=== PATIENT | female | born 1975 | race Caucasian/White ===

== ENCOUNTER 2017-02-01 17:59 | Emergency (ER) | payer OTHER, SELFPAY ==
[2017-02-01 19:08] LABS: Hematocrit 38.8 % (36.0-47.0); Red Blood Cell (RBC) Count 4.62 mill/uL (4.20-5.40); White Blood Cell (WBC) Count 6.7 thou/uL (4.8-10.8)
[2017-02-01 19:09] LABS: Bilirubin Negative (Negative); Blood, Urine Negative (Negative); Glucose, Urine (Dipstick) >=1000 mg/dL (Negative); Ketone, Urine 40 mg/dL (Negative); Nitrite Negative (Negative); Protein, Urine (Dipstick) Negative (Neg-Trace)
[2017-02-01 19:18] LABS: Hemoglobin A1c 12.8 % (4.0-6.0)
[2017-02-01 19:34] LABS: Anion Gap 6 mmol/L (-14-95); T. Carbon Dioxide 27.6 mmol/L (1.0-85.0); pH (Venous) 7.371 (7.35-7.45)
[2017-02-01 19:34] LABS: #Basophils 0.1 thou/uL (0.0-0.2); #Eosinphils 0.4 thou/uL (0.0-0.7); #Lymphocytes 2.7 thou/uL (1.20-3.40); #Monocytes 0.3 thou/uL (0.11-0.59); #Neutrophils 3.2 thou/uL (1.40-6.50); %Basophils 0.9 % (0.0-1.0); %Eosinophils 5.4 % (0.0-10.0); %Lymphocytes 41.1 % (21.0-51.0); %Monocytes 4.6 % (0.0-10.0); Band 2 % (5-11); Neutrophil 47 % (42-75); Reactive Lymphocytes 1 % (0-10)
[2017-02-01] MEDS ORDERED: Insulin Regular 300 UNITS/3 ML VIAL ONE (19:35)
[2017-02-01 19:36] LABS: Chloride 92 mmol/L (98-107)
[2017-02-01 19:37] LABS: Anion Gap 17 mmol/L (10-20); BUN (Urea Nitrogen) 11 mg/dL (7.0-18.7); Calc. Creatinine Clearance 0 mL/min (70-130); Calcium 9.2 mg/dL (7.8-10.44); Carbon Dioxide 21 mmol/L (22-29); Estimated GFR-MDRD 77
[2017-02-01 19:43] LABS: CK (CPK) 56 U/L (29-168)
== END 2017-02-01 22:00 | disposition home or self-care (01) ==
LOC: ERS 17:59
DX: E11.65 Type 2 diabetes mellitus with hyperglycemia (principal); F41.9 Anxiety disorder, unspecified; F32.9 Major depressive disorder, single episode, unspecified; Z85.41 Personal history of malignant neoplasm of cervix uteri; Z92.3 Personal history of irradiation
CPT/HCPCS: 36415; 36416; 80048; 81003; 81025; 82010; 82330; 82550; 82803; 83036; 83930; 85025; 96360; 96361; 96372; J1815

== ENCOUNTER 2017-03-08 11:22 | Emergency (ER) | payer SELFPAY ==
[~2017-03-08 11:22] MED LIST: Iopamidol 370 76% 100 ML VIAL ONE
[2017-03-08 12:06] LABS: Bacteria/HPF 2+ HPF (None Seen); Squamous Epithelial 0-3 HPF (0-3)
[2017-03-08] MEDS ORDERED: Morphine 4 MG/ML Carpuject ONE ×2 (12:17→13:25)
[2017-03-08 12:19] LABS: #Basophils 0.1 thou/uL (0.0-0.2); #Eosinphils 0.4 thou/uL (0.0-0.7); #Lymphocytes 1.7 thou/uL (1.20-3.40); #Monocytes 0.4 thou/uL (0.11-0.59); #Neutrophils 4.2 thou/uL (1.40-6.50); %Basophils 1.3 % (0.0-1.0); %Eosinophils 5.3 % (0.0-10.0); %Lymphocytes 25.3 % (21.0-51.0); %Monocytes 6.1 % (0.0-10.0); Hematocrit 40.3 % (36.0-47.0); Mean Platelet Volume 6.9 fL (7.4-10.4); Red Blood Cell (RBC) Count 4.58 mill/uL (4.20-5.40); White Blood Cell (WBC) Count 6.8 thou/uL (4.8-10.8)
[2017-03-08 12:41] LABS: ALT (SGPT) 16 U/L (8-55); AST (SGOT) 11 U/L (5-34); Alkaline Phosphatase 65 U/L (40-150); Anion Gap 18 mmol/L (10-20); BUN (Urea Nitrogen) 16 mg/dL (7.0-18.7); Bilirubin, Total 0.4 mg/dL (0.2-1.2); Calc. Creatinine Clearance 0 mL/min (70-130); Calcium 9.7 mg/dL (7.8-10.44); Carbon Dioxide 23 mmol/L (22-29); Chloride 101 mmol/L (98-107); Estimated GFR-MDRD 80; Globulin 3.3 g/dL (2.4-3.5); Lipase 32 U/L (8-78); Magnesium 1.8 mg/dL (1.6-2.6); Protein, Total 7.1 g/dL (6.0-8.3)
[2017-03-08] MEDS ORDERED: cefTRIAXone\\ROCEPHIN 1 GM VIAL ONE (13:25)
[2017-03-08] MEDS ORDERED: Ondansetron HCl/PF 4 MG/2 ML Vial ONE (13:25)
[2017-03-08] MEDS ORDERED: Sodium Chloride 0.9% 100 ML ONE (13:25)
[2017-03-08] MEDS ORDERED: Ketorolac Tromethamine 30 MG/ML VIAL ONE (14:22)
--- NOTE | 2017-03-08 15:14 | CT ---
CT OF ABDOMEN AND PELVIS PERFORMED WITH INTRAVENOUS CONTRAST ENHANCEMENT: HISTORY: Patient with abdominal pain, dysuria, and urine odor that started 3 days ago. Pain more in the lower abdomen. History of cervical cancer. FINDINGS: The lung bases show 2 right lower lobe pulmonary nodules both measuring in the 9 mm range. There is a third nodule which has a central calcification similar in size in the right middle lobe. No infilt rative process. The liver appears slightly enlarged. It measures 25 cm in length but this is partially related to a somewhat elongated right lobe. The spleen is within normal limits. The pancreas is unremarkable. A small gallstone is identified. Right and left adrenal glands and right and left kidneys are normal in appearance. There is no signi ficant periaortic or mesenteric adenopathy. CT OF PELVIS PERFORMED WITH CONTRAST ENHANCEMENT: The bladder wall is diffusely thickened. This could be on the basis of an infection or it could be p ost radiation. The uterus has been removed. The appendix was normal. No significant pelvic lymphad enopathy. Small nonspecific inguinal nodes are seen. Slight scoliotic deformity to the spine is noted. IMPRESSION: 1. Two noncalcified right lower lobe pulmonary nodules. I did not have any previous exams available for comparison, but a report of a prior 2006 CT does not described any pulmonary nodules and given t he history of cervical cancer, these have to be viewed with suspicion. A complete CT of the chest wo uld be recommended on an nonemergent basis. 2. Bladder wall thickening could be on the basis of a cystitis. It could be post radiation in natur e. 3. Borderline liver size. 4. Small gallstone. 5. Findings were telephoned to Dr. Guzman at the time of this dictation. CODE CR POS: [facility]
== END 2017-03-08 15:07 | disposition home or self-care (01) ==
LOC: SCSER 11:22
DX: N12 Tubulo-interstitial nephritis, not specified as acute or chronic (principal); K80.20 Calculus of gallbladder without cholecystitis without obstruction; E11.65 Type 2 diabetes mellitus with hyperglycemia; R91.1 Solitary pulmonary nodule; F41.9 Anxiety disorder, unspecified; F32.9 Major depressive disorder, single episode, unspecified
CPT/HCPCS: 74177; 80053; 81003; 81015; 81025; 83690; 83735; 85025; 87077; 87086; 87186; 87491; 87591; 96361; 96365; 96375; 96376; J0696; J1885; J2270; J2405; J7050

== ENCOUNTER 2017-05-01 17:32 | Emergency (ER) | payer OTHER ==
[2017-05-01 18:10] LABS: Bilirubin Negative (Negative); Blood, Urine Negative (Negative); Clarity Hazy (Clear); Glucose, Urine (Dipstick) >=1000 mg/dL (Negative); Leukocyte Negative (Negative); Nitrite Positive (Negative); Protein, Urine (Dipstick) Negative (Neg-Trace); Urobilinogen 0.2 mg/dL (0.2-1.0)
[2017-05-01 18:18] LABS: Bacteria/HPF 2+ HPF (None Seen); RBC/HPF None Seen HPF (0-3)
[2017-05-01 18:41] LABS: #Basophils 0.1 thou/uL (0.0-0.2); #Eosinphils 0.2 thou/uL (0.0-0.7); #Lymphocytes 2.3 thou/uL (1.20-3.40); #Monocytes 0.3 thou/uL (0.11-0.59); #Neutrophils 2.3 thou/uL (1.40-6.50); %Basophils 1.2 % (0.0-1.0); %Eosinophils 4.7 % (0.0-10.0); %Lymphocytes 43.6 % (21.0-51.0); %Monocytes 6.3 % (0.0-10.0); %Neutrophils 44.2 % (42.0-75.0); Hemoglobin 13.8 g/dL (12.0-16.0); Mean Corpuscular HGB CONC 33.6 g/dL (32.0-36.0); Mean Corpuscular Hemoglobin 28.9 pg (27.0-31.0); Mean Corpuscular Volume 85.9 fl (81.0-99.0); Mean Platelet Volume 8.2 fL (7.4-10.4); Platelet Count 221 thou/uL (130-400); RBC Distribution Width 12.2 % (11.5-14.5); Red Blood Cell (RBC) Count 4.77 mill/uL (4.20-5.40); White Blood Cell (WBC) Count 5.3 thou/uL (4.8-10.8)
[2017-05-01 18:53] LABS: Anion Gap 18 mmol/L (10-20); BUN (Urea Nitrogen) 15 mg/dL (7.0-18.7); Calc. Creatinine Clearance 0 mL/min (70-130); Calcium 9.8 mg/dL (7.8-10.44); Carbon Dioxide 21 mmol/L (22-29); Chloride 99 mmol/L (98-107); Estimated GFR-MDRD 85; Glucose 385 mg/dL (70-105); Sodium 134 mmol/L (136-145)
[2017-05-01] MEDS ORDERED: Ciprofloxacin 500 MG TAB ONE (19:05)
== END 2017-05-01 19:50 | disposition home or self-care (01) ==
LOC: SCSER 17:32
DX: N39.0 Urinary tract infection, site not specified (principal); E11.65 Type 2 diabetes mellitus with hyperglycemia; F41.9 Anxiety disorder, unspecified; F32.9 Major depressive disorder, single episode, unspecified; Z79.84 Long term (current) use of oral hypoglycemic drugs
CPT/HCPCS: 80048; 81003; 81015; 85025; 96360

== ENCOUNTER 2017-07-26 18:16 | Emergency (ER) | payer OTHER ==
[2017-07-26 18:52] LABS: Clarity Hazy (Clear)
[2017-07-26 18:59] LABS: Bacteria/HPF 1+ HPF (None Seen); WBC/HPF 21-50 HPF (0-3)
== END 2017-07-26 19:32 | disposition home or self-care (01) ==
LOC: SCSER 18:16
DX: N39.0 Urinary tract infection, site not specified (principal); E11.9 Type 2 diabetes mellitus without complications; F41.9 Anxiety disorder, unspecified; F32.9 Major depressive disorder, single episode, unspecified; Z79.4 Long term (current) use of insulin; Z79.899 Other long term (current) drug therapy
CPT/HCPCS: 81001; 87086; 99283

== ENCOUNTER 2017-08-16 17:43 | Emergency (ER) | payer OTHER ==
--- NOTE | 2017-08-16 18:47 | RAD ---
AP VIEW OF THE CHEST: 08/16/17 INDICATION: Weakness and dehydration and shortness of breath. FINDINGS: There is low lung volumes. There is right basilar atelectasis. No consolidation, pleural effusion or pneumothorax evident. No acute osseous abnormality is evident. IMPRESSION: Low lung volumes. Right basilar atelectasis. POS: [facility]
[2017-08-16 18:48] LABS: ALT (SGPT) 19 U/L (8-55); AST (SGOT) 25 U/L (5-34); Albumin 3.7 g/dL (3.5-5.0); Alkaline Phosphatase 59 U/L (40-150); Anion Gap 19 mmol/L (10-20); BUN (Urea Nitrogen) 15 mg/dL (7.0-18.7); Bilirubin, Total 0.5 mg/dL (0.2-1.2); Calc. Creatinine Clearance 0 mL/min (70-130); Calcium 9.9 mg/dL (7.8-10.44); Carbon Dioxide 21 mmol/L (22-29); Chloride 91 mmol/L (98-107); Estimated GFR-MDRD 75; Glucose 427 mg/dL (70-105); Potassium 4.7 mmol/L (3.5-5.1); Protein, Total 8.7 g/dL (6.0-8.3); Sodium 126 mmol/L (136-145)
[2017-08-16 18:50] LABS: CKMB 0.4 ng/mL (0-6.6); Troponin I Less than 0.010 ng/mL (< 0.028)
[2017-08-16 18:52] LABS: #Basophils 0.1 thou/uL (0.0-0.2); #Eosinphils 0.3 thou/uL (0.0-0.7); #Lymphocytes 2.3 thou/uL (1.20-3.40); #Monocytes 0.4 thou/uL (0.11-0.59); #Neutrophils 3.8 thou/uL (1.40-6.50); %Eosinophils 4.8 % (0.0-10.0); %Lymphocytes 32.9 % (21.0-51.0); %Monocytes 6.4 % (0.0-10.0); %Neutrophils 54.9 % (42.0-75.0); Hemoglobin 14.6 g/dL (12.0-16.0); Mean Corpuscular HGB CONC 34.3 g/dL (32.0-36.0); Mean Corpuscular Hemoglobin 29.8 pg (27.0-31.0); Mean Corpuscular Volume 86.9 fl (81.0-99.0); Mean Platelet Volume 8.1 fL (7.4-10.4); Platelet Count 254 thou/uL (130-400); RBC Distribution Width 12.5 % (11.5-14.5); Red Blood Cell (RBC) Count 4.91 mill/uL (4.20-5.40); White Blood Cell (WBC) Count 6.9 thou/uL (4.8-10.8)
[2017-08-16 18:54] LABS: Bilirubin Negative (Negative); Blood, Urine Negative (Negative); Clarity CLEAR (Clear); Glucose, Urine (Dipstick) >=1000 mg/dL (Negative); Leukocyte Trace (Negative); Nitrite Negative (Negative); Protein, Urine (Dipstick) Negative (Neg-Trace); Specific Gravity, Urine 1.044 (1.002-1.036); Urobilinogen 0.2 mg/dL (0.2-1.0)
[2017-08-16 18:57] LABS: Bacteria/HPF None Seen HPF (None Seen); Hyaline Casts/LPF 7-10 HYALINE CAST LPF (0-3 Hyaline); Pathc Cast-AUWi Flag 1.74 (0-2.49); WBC/HPF 21-50 HPF (0-3)
[2017-08-16 18:58] LABS: Renal Epithelial None Seen HPF (0-3); Transitional Epithelial NONE SEEN HPF (0-3)
== END 2017-08-16 21:57 | disposition home or self-care (01) ==
LOC: ERS 17:43
DX: E86.0 Dehydration (principal); N39.0 Urinary tract infection, site not specified; E11.65 Type 2 diabetes mellitus with hyperglycemia; F41.9 Anxiety disorder, unspecified; F32.9 Major depressive disorder, single episode, unspecified; Z85.41 Personal history of malignant neoplasm of cervix uteri; Z79.4 Long term (current) use of insulin; Z79.899 Other long term (current) drug therapy
CPT/HCPCS: 36416; 71045; 80053; 81003; 81015; 82553; 84484; 85025; 87086; 93005; 96361; 96374; J0696

== ENCOUNTER 2017-09-29 11:20 | Emergency (ER) | payer OTHER ==
--- NOTE | 2017-09-29 11:57 | RAD ---
2 VIEWS CHEST: Date: 09/29/17 COMPARISON: 02/10/17. HISTORY: Pain. FINDINGS: No pneumothorax or pleural fluid. No focal consolidation or alveolar edema. Heart and mediastinal con tours appear grossly unremarkable. There is a nodule identified within the anterior clear space on the lateral examination. A correlate is identified on the right, consistent with a right lower lobe pulmonary nodule, as seen on CT examin ation performed 03/08/17. IMPRESSION: Right lower lobe pulmonary nodule. This should be further assessed with a complete chest CT on a none mergent basis. This could be related to benign or malignant disease. No acute findings are seen. CODE T. POS: [facility]
[2017-09-29 12:32] LABS: #Basophils 0.1 thou/uL (0.0-0.2); #Eosinphils 0.4 thou/uL (0.0-0.7); #Lymphocytes 2.4 thou/uL (1.20-3.40); #Monocytes 0.4 thou/uL (0.11-0.59); #Neutrophils 3.3 thou/uL (1.40-6.50); %Basophils 1.5 % (0.0-1.0); %Eosinophils 6.7 % (0.0-10.0); %Lymphocytes 36.2 % (21.0-51.0); %Monocytes 5.4 % (0.0-10.0); %Neutrophils 50.2 % (42.0-75.0); Hemoglobin 13.8 g/dL (12.0-16.0); Mean Corpuscular HGB CONC 36.4 g/dL (32.0-36.0); Mean Corpuscular Hemoglobin 30.2 pg (27.0-31.0); Mean Corpuscular Volume 82.8 fL (78.0-98.0); Mean Platelet Volume 8.5 fL (7.4-10.4); Platelet Count 227 thou/uL (130-400); RBC Distribution Width 12.6 % (11.5-14.5); Red Blood Cell (RBC) Count 4.57 mill/uL (4.20-5.40); White Blood Cell (WBC) Count 6.5 thou/uL (4.8-10.8)
[2017-09-29 12:57] LABS: ALT (SGPT) 16 U/L (8-55); AST (SGOT) 16 U/L (5-34); Albumin 3.6 g/dL (3.5-5.0); Alkaline Phosphatase 66 U/L (40-150); Anion Gap 17 mmol/L (10-20); BUN (Urea Nitrogen) 16 mg/dL (7.0-18.7); Bilirubin, Total 0.3 mg/dL (0.2-1.2); Calc. Creatinine Clearance 0 mL/min (70-130); Calcium 9.8 mg/dL (7.8-10.44); Carbon Dioxide 20 mmol/L (22-29); Chloride 94 mmol/L (98-107); Estimated GFR-MDRD 77; Globulin 4.3 g/dL (2.4-3.5); Glucose 328 mg/dL (70-105); Lipase 33 U/L (8-78); Protein, Total 7.9 g/dL (6.0-8.3); Sodium 127 mmol/L (136-145)
[2017-09-29 13:02] LABS: Bilirubin Negative (Negative); Blood, Urine Negative (Negative); Clarity CLEAR (Clear); Glucose, Urine (Dipstick) >=1000 mg/dL (Negative); Leukocyte Small (Negative); Nitrite Negative (Negative); Protein, Urine (Dipstick) Negative (Neg-Trace); Specific Gravity, Urine 1.042 (1.002-1.036); Urobilinogen 0.2 mg/dL (0.2-1.0)
[2017-09-29 13:07] LABS: Bacteria/HPF Rare-Few HPF (None Seen); Hyaline Casts/LPF 4-6 HYALINE CAST LPF (0-3 Hyaline); Pathc Cast-AUWi Flag 1.16 (0-2.49); RBC/HPF 0-3 HPF (0-3); Squamous Epithelial 0-3 HPF (0-3)
[2017-09-29 13:10] LABS: Pregnancy Test - Urine (BHCG) Negative (Negative); Pregu Control Background? CLEAR/WHITE (CLR/WHITE); Pregu Control Bar Appear? YES (CONTROL BAR); Specific Gravity 1.042 (1.002-1.036)
--- NOTE | 2017-09-29 13:42 | ULT ---
RIGHT UPPER QUADRANT ULTRASOUND: Date: 09-29-17 Comparison: None. History: Right upper quadrant pain. Technique: Multiplanar grayscale sonographic imaging of the right upper quadrant provided. FINDINGS: Imaged pancreas is unremarkable. The pancreas is partially obscured by bowel gas. There is no focal l iver lesion. The hepatic parenchyma is echogenic and heterogeneous suggesting hepatocellular disease, such as steatosis. The common bile duct measures 4 mm, within normal limits. There is no gallbladder wall thickening or pericholecystic fluid. The right kidney measures 12.1 cm i n craniocaudal dimension and demonstrates no stone, hydronephrosis, or mass. Multiple small echogenic foci are noted within the gallbladder suggesting multiple small stones. Sonographic Syed's sign is negative. IMPRESSION: 1. Cholelithiasis with sonographic evidence of cholecystitis or biliary dilatation. Findings suggesti ng probable hepatic steatosis. POS: [facility]
[2017-09-29] MEDS ORDERED: cefTRIAXone\\ROCEPHIN 1 GM in Sodium Chloride 0.9% 100 ML IVPB ONE (13:45)
== END 2017-09-29 14:48 | disposition home or self-care (01) ==
LOC: ERS 11:20
DX: E11.65 Type 2 diabetes mellitus with hyperglycemia (principal); N39.0 Urinary tract infection, site not specified; F41.9 Anxiety disorder, unspecified; F32.9 Major depressive disorder, single episode, unspecified; Z79.84 Long term (current) use of oral hypoglycemic drugs; Z79.4 Long term (current) use of insulin; Z79.899 Other long term (current) drug therapy
CPT/HCPCS: 36415; 71046; 76705; 80053; 81003; 81015; 81025; 82010; 82150; 82550; 83690; 85025; 87077; 87086; 87186; 96365; J0696; J7050

== ENCOUNTER 2017-12-19 19:09 | Emergency (ER) | payer OTHER ==
[2017-12-19] MEDS ORDERED: Lidocaine 1% w/Epinephrine 1:100K 20 ML VIAL ONE (19:48)
[2017-12-19] MEDS ORDERED: Bacitracin Zinc 1 Packet ONE (20:07)
== END 2017-12-19 20:17 | disposition home or self-care (01) ==
LOC: ERS 19:09
DX: L02.212 Cutaneous abscess of back [any part, except buttock and flank] (principal); F41.9 Anxiety disorder, unspecified; F32.9 Major depressive disorder, single episode, unspecified
CPT/HCPCS: 10061; 87070; 87205; J2001

== ENCOUNTER 2018-07-23 08:05 | Outpatient (CLI) | payer OTHER ==
--- NOTE | 2018-07-23 08:46 | MMO ---
Bilateral MAMMO Bilat Diag [facility]AGO. CLINICAL HISTORY: Patient is 42 years old and is seen for diagnostic exam. The patient has the following family history of breast cancer: father. The patient has a history of cervical cancer. VIEWS: The views performed were: bilateral craniocaudal with tomosynthesis; bilateral mediolateral oblique with tomosynthesis; and bilateral mediolateral. MAMMOGRAM FINDINGS: There are scattered fibroglandular densities. There are no suspicious masses, suspicious calcifications, or new areas of architectural distortion. IMPRESSION: THERE IS NO MAMMOGRAPHIC EVIDENCE OF MALIGNANCY. A ROUTINE FOLLOW-UP MAMMOGRAM IN 1 YEAR IS RECOMMENDED. THE RESULTS OF THIS EXAM WERE SENT TO THE PATIENT. ACR BI-RADS Category 1 - Negative MAMMOGRAPHY NOTE: 1. A negative mammogram report should not delay a biopsy if a dominant of clinically suspicious mass is present. 2. Approximately 10% to 15% of breast cancers are not detected by mammography. 3. Adenosis and dense breasts may obscure an underlying neoplasm.
== END 2018-07-23 08:06 | disposition home or self-care (01) ==
LOC: BICMAMMO 08:05
PROVIDERS: ATTEND Family Medicine
DX: N64.4 Mastodynia (principal); Z80.3 Family history of malignant neoplasm of breast; Z85.41 Personal history of malignant neoplasm of cervix uteri
CPT/HCPCS: 77066; G0279

== ENCOUNTER 2018-09-12 16:03 | Emergency (ER) | payer OTHER ==
[2018-09-12 16:29] LABS: #Eosinphils 0.3 thou/uL (0.0-0.7); #Lymphocytes 0.9 thou/uL (1.20-3.40); #Monocytes 0.3 thou/uL (0.11-0.59); #Neutrophils 4.5 thou/uL (1.40-6.50); %Basophils 0.3 % (0.0-1.0); %Eosinophils 4.4 % (0.0-10.0); %Lymphocytes 15.2 % (21.0-51.0); %Monocytes 4.8 % (0.0-10.0); %Neutrophils 75.3 % (42.0-75.0); Hemoglobin 14.3 g/dL (12.0-16.0); Mean Corpuscular Volume 88.3 fL (78.0-98.0); Mean Platelet Volume 7.5 fL (7.4-10.4); Platelet Count 240 thou/uL (130-400); RBC Distribution Width 12.3 % (11.5-14.5); Red Blood Cell (RBC) Count 4.78 mill/uL (4.20-5.40)
[2018-09-12 16:45] LABS: Bilirubin Negative (Negative); Blood, Urine Negative (Negative); Clarity CLEAR (Clear); Glucose, Urine (Dipstick) 250 mg/dL (Negative); Leukocyte Small (Negative); Nitrite Negative (Negative); Protein, Urine (Dipstick) Negative (Neg-Trace); Specific Gravity, Urine 1.022 (1.002-1.036); Urobilinogen 0.2 mg/dL (0.2-1.0)
[2018-09-12 16:48] LABS: Bacteria/HPF None Seen HPF (None Seen); WBC/HPF 21-50 HPF (0-3)
[2018-09-12 16:49] LABS: Hyaline Casts/LPF 0-3 HYALINE CAST LPF (0-3 Hyaline); Manual Microscopic Reviewed? No Path Casts Seen; Pathc Cast-AUWi Flag 2.58 (0-2.49)
[2018-09-12 16:50] LABS: ALT (SGPT) 19 U/L (8-55); AST (SGOT) 15 U/L (5-34); Albumin 3.9 g/dL (3.5-5.0); Alkaline Phosphatase 53 U/L (40-150); Anion Gap 16 mmol/L (10-20); BUN (Urea Nitrogen) 10 mg/dL (7.0-18.7); Bilirubin, Total 0.5 mg/dL (0.2-1.2); Calc. Creatinine Clearance 0 mL/min (70-130); Calcium 9.2 mg/dL (7.8-10.44); Carbon Dioxide 22 mmol/L (22-29); Chloride 101 mmol/L (98-107); Estimated GFR-MDRD Greater than 90; Globulin 3.1 g/dL (2.4-3.5); Glucose 184 mg/dL (70-105); Potassium 3.4 mmol/L (3.5-5.1); Sodium 136 mmol/L (136-145)
[2018-09-12] MEDS ORDERED: Ketorolac Tromethamine 30 MG/ML VIAL ONE (19:19)
[2018-09-12] MEDS ORDERED: Morphine 4 MG/ML VIAL ONE (19:19)
== END 2018-09-12 21:28 | disposition home or self-care (01) ==
LOC: ERS 16:03
DX: E86.0 Dehydration (principal); E03.9 Hypothyroidism, unspecified; E11.9 Type 2 diabetes mellitus without complications; F41.9 Anxiety disorder, unspecified; F31.9 Bipolar disorder, unspecified; Z87.891 Personal history of nicotine dependence; Z79.899 Other long term (current) drug therapy; Z79.84 Long term (current) use of oral hypoglycemic drugs
CPT/HCPCS: 36415; 36416; 80053; 81003; 81015; 85025; 87086; 93005; 96361; 96374; 96375; J1885; J2270

== ENCOUNTER 2018-10-07 23:02 | Emergency (ER) | payer OTHER, SELFPAY ==
[2018-10-07] MEDS ORDERED: predniSONE 20 MG TAB ONE (23:23)
[2018-10-07] MEDS ORDERED: Famotidine 20 MG TAB ONE (23:23)
== END 2018-10-07 23:42 | disposition home or self-care (01) ==
LOC: SCSER 23:02
DX: T78.40XA Allergy, unspecified, initial encounter (principal); N39.0 Urinary tract infection, site not specified; F41.9 Anxiety disorder, unspecified; F31.9 Bipolar disorder, unspecified; E03.9 Hypothyroidism, unspecified; E11.9 Type 2 diabetes mellitus without complications; Z79.4 Long term (current) use of insulin
CPT/HCPCS: 99283; J7512

== ENCOUNTER 2018-10-20 02:40 | Emergency (ER) | payer OTHER ==
[2018-10-20] MEDS ORDERED: Ondansetron ODT 4 MG TAB ONE (03:09)
[2018-10-20 03:34] LABS: #Basophils 0.1 thou/uL (0.0-0.2); #Eosinphils 0.4 thou/uL (0.0-0.7); #Lymphocytes 3.2 thou/uL (1.20-3.40); #Monocytes 0.5 thou/uL (0.11-0.59); #Neutrophils 4.6 thou/uL (1.40-6.50); %Basophils 0.9 % (0.0-1.0); %Eosinophils 4.5 % (0.0-10.0); %Lymphocytes 36.5 % (21.0-51.0); %Monocytes 6.1 % (0.0-10.0); %Neutrophils 52.1 % (42.0-75.0); Hemoglobin 14.1 g/dL (12.0-16.0); Mean Corpuscular HGB CONC 34.8 g/dL (32.0-36.0); Mean Corpuscular Volume 86.4 fL (78.0-98.0); Mean Platelet Volume 7.8 fL (7.4-10.4); Platelet Count 267 thou/uL (130-400); Red Blood Cell (RBC) Count 4.69 mill/uL (4.20-5.40); White Blood Cell (WBC) Count 8.8 thou/uL (4.8-10.8)
[2018-10-20 04:15] LABS: ALT (SGPT) 20 U/L (8-55); AST (SGOT) 15 U/L (5-34); Albumin 3.8 g/dL (3.5-5.0); Alkaline Phosphatase 59 U/L (40-150); Anion Gap 17 mmol/L (10-20); BUN (Urea Nitrogen) 12 mg/dL (7.0-18.7); Bilirubin, Total 0.2 mg/dL (0.2-1.2); Calc. Creatinine Clearance 0 mL/min (70-130); Calcium 9.5 mg/dL (7.8-10.44); Carbon Dioxide 21 mmol/L (22-29); Chloride 98 mmol/L (98-107); Estimated GFR-MDRD 88; Globulin 3.4 g/dL (2.4-3.5); Glucose 343 mg/dL (70-105); Lipase 183 U/L (8-78); Potassium 4.3 mmol/L (3.5-5.1); Protein, Total 7.2 g/dL (6.0-8.3); Sodium 132 mmol/L (136-145)
== END 2018-10-20 04:55 | disposition home or self-care (01) ==
LOC: ERS 02:40
DX: E86.0 Dehydration (principal); E10.65 Type 1 diabetes mellitus with hyperglycemia; R11.2 Nausea with vomiting, unspecified; E03.9 Hypothyroidism, unspecified; F41.9 Anxiety disorder, unspecified; F31.9 Bipolar disorder, unspecified; Z87.891 Personal history of nicotine dependence; Z79.84 Long term (current) use of oral hypoglycemic drugs; Z79.899 Other long term (current) drug therapy
CPT/HCPCS: 36415; 36416; 80053; 83690; 85025; 96360; Q0162

== ENCOUNTER 2019-05-01 22:57 | Emergency (ER) | payer OTHER ==
[2019-05-01 23:31] LABS: Bacteria/HPF 4+ HPF (None Seen); Bilirubin Negative (Negative); Blood, Urine 2+ (Negative); Clarity Extra Turbid (Clear); Glucose, Urine (Dipstick) Greater than 1000 mg/dL (Negative); Leukocyte 500 Leu/uL (Negative); Mucous/LPF 2+ LPF (<2+); Nitrite 2+ (Negative); Protein, Urine (Dipstick) 300 mg/dL (Neg-Trace); RBC/HPF Greater than 50 HPF (0-3); Urobilinogen Normal mg/dL (Less than 2); WBC/HPF Greater than 50 HPF (0-3)
[2019-05-01] MEDS ORDERED: Ketorolac Tromethamine 60 MG/2 ML VIAL ONE (23:47)
== END 2019-05-02 00:06 | disposition home or self-care (01) ==
LOC: ERS 22:57
DX: N39.0 Urinary tract infection, site not specified (principal); E11.9 Type 2 diabetes mellitus without complications; E03.9 Hypothyroidism, unspecified; F41.9 Anxiety disorder, unspecified; F32.9 Major depressive disorder, single episode, unspecified; Z87.891 Personal history of nicotine dependence; Z79.899 Other long term (current) drug therapy; Z79.4 Long term (current) use of insulin
CPT/HCPCS: 81003; 81015; 87077; 87086; 87186; 96372; 99283; J1885

== ENCOUNTER 2021-07-13 23:42 | Emergency (ER) | payer MEDICAID, OTHER, SELFPAY ==
[2021-07-13] MEDS ORDERED: Lidocaine 1% PF 5 ML VIAL ONE (23:57)
== END 2021-07-14 01:04 | disposition home or self-care (01) ==
LOC: ERS 23:42
DX: L02.412 Cutaneous abscess of left axilla (principal); E03.9 Hypothyroidism, unspecified; E11.9 Type 2 diabetes mellitus without complications; Z85.41 Personal history of malignant neoplasm of cervix uteri; Z87.891 Personal history of nicotine dependence
CPT/HCPCS: 10060

== ENCOUNTER 2022-03-20 12:10 | Emergency (ER) | payer MEDICAID, OTHER ==
[2022-03-20] MEDS ORDERED: Lidocaine 1% PF 5 ML VIAL ONE (14:19)
== END 2022-03-20 15:15 | disposition home or self-care (01) ==
LOC: ERS 12:10
DX: L02.212 Cutaneous abscess of back [any part, except buttock and flank] (principal); E03.9 Hypothyroidism, unspecified; E11.9 Type 2 diabetes mellitus without complications; Z87.891 Personal history of nicotine dependence; Z79.4 Long term (current) use of insulin; Z79.899 Other long term (current) drug therapy
CPT/HCPCS: 10060

== ENCOUNTER 2024-12-13 21:48 | Emergency (ER) | payer SELFPAY ==
[2024-12-13] MEDS ORDERED: Acetaminophen 500 MG TAB ONE (22:15)
[2024-12-14 00:31] LABS: #Basophils 0.03 10x3/uL (0.0-0.2); #Eosinophils Less than 0.03 10x3/uL (0.0-0.7); #Monocytes 0.36 10x3/uL (0.11-0.59); #Neutrophils 6.34 10x3/uL (1.40-6.50); %Basophils 0.4 % (0.0-1.0); %Eosinophils 0.1 % (0.0-10.0); %Lymphocytes 4.8 % (21.0-51.0); %Monocytes 5.1 % (0.0-10.0); %Neutrophils 89.3 % (42.0-75.0); Hematocrit 38.7 % (36.0-47.0); Hemoglobin 12.6 g/dL (12.0-16.0); Mean Corpuscular Hemoglobin 29.2 pg (27.0-31.0); Mean Corpuscular Volume 89.8 fL (78.0-98.0); Platelet Count 193 10x3/uL (130-400); Red Blood Cell (RBC) Count 4.31 mill/uL (4.20-5.40); White Blood Cell (WBC) Count 7.10 10x3/uL (4.8-10.8)
[2024-12-14 01:00] LABS: ALT (SGPT) 12 U/L (Less than 34); AST (SGOT) 16 U/L (11-34); Albumin 3.5 g/dL (3.1-4.5); Alkaline Phosphatase 65 U/L (40-110); Anion Gap 16 mmol/L (10-20); BUN (Urea Nitrogen) 18 mg/dL (7.0-18.7); Bilirubin, Total 0.4 mg/dL (0.3-1.2); Calc. Creatinine Clearance 0 mL/min (70-130); Calcium 9.5 mg/dL (7.8-10.44); Carbon Dioxide 22 mmol/L (22-29); Chloride 99 mmol/L (98-107); Globulin 3.9 g/dL (2.4-3.5); Glucose 331 mg/dL (70-105); Potassium 4.0 mmol/L (3.5-5.1); Sodium 133 mmol/L (136-145)
[2024-12-14] MEDS ORDERED: Ketorolac Tromethamine 30 MG (1 mL) VIAL ONE (01:57)
[2024-12-14] MEDS ORDERED: diphenhydrAMINE 50 MG/ML VIAL ONE (01:57)
[2024-12-14] MEDS ORDERED: Metoclopramide HCl 10 MG (2 mL) VIAL ONE (01:57)
== END 2024-12-14 03:17 | disposition home or self-care (01) ==
LOC: ERS 21:48
DX: J06.9 Acute upper respiratory infection, unspecified (principal); E11.9 Type 2 diabetes mellitus without complications
CPT/HCPCS: 36415; 80053; 83605; 85025; 86141; 87081; 87428; 87430; 96374; 96375; J1200; J1885; J2765; J2919